=== PATIENT | female | born 1970 | race Caucasian/White ===

== ENCOUNTER 2023-02-16 09:08 | Emergency (ER) | payer BC, SELFPAY ==
[2023-02-16] VITALS (42 sets, daily range): BP systolic 129–181; BP diastolic 85–114; PULSE 74–99; RESP 12–25; TEMP 37.3; O2SAT 94–98
--- NOTE | ~2023-02-16 | CT_ITS ---
EXAMINATION: CT BRAIN W/O DATE: 02/16/2023 10:19 INDICATION: Hypertension. Dizziness. Headache. TECHNIQUE: Computed tomography (CT) of the head was performed without intravenous contrast. The dose- length product was 605.33 mGy-cm. Automated exposure control and iterative reconstruction technique w ere employed. COMPARISON: No prior studies for comparison. FINDINGS: Normal brain parenchymal volume for age. Normal dykes-white differentiation. No acute intrac ranial hemorrhage, infarction, mass or mass effect. No ventriculomegaly or midline shift. Midline sagittal images demonstrate a normal corpus callosum, c raniovertebral junction and sella turcica. Basilar cisterns are patent. Paranasal sinuses and mastoids are pneumatized. No depressed skull fractures. IMPRESSION: 1. No acute intracranial abnormality. Reviewed, dictated and finalized at location L.
--- NOTE | 2023-02-16 09:27 | ECG_ITS ---
Measurements Intervals [place] Rate: 82 P: 57 TX: 137 QRS: 30 QRSD: 92 T: 27 QT: 402 QTc: 471 Interpretive Statements SINUS RHYTHM NO PREVIOUS ECG AVAILABLE FOR COMPARISON Electronically Signed On 02-16-2023 17:07:07 CDT by Thierry Hawkins M.D.
--- NOTE | 2023-02-16 10:04 | ED.DIZZY ---
HPI - Dizziness General Chief Complaint: Dizziness <PAKO Jordan Last Filed: 02/16/23 15:10> Stated Complaint: high BP (184/112) <PAKO Jordan Last Filed: 02/16/23 15:10> Time Seen by Provider: 02/16/23 09:27 <PAKO Jordan Last Filed: 02/16/23 15:10> Source: patient <PAKO Jordan Last Filed: 02/16/23 15:10> Mode of arrival: ambulatory <PAKO Jordan Last Filed: 02/16/23 15:10> Limitations: no limitations <PAKO oJrdan Last Filed: 02/16/23 15:10> History of Present Illness HPI Narrative: Patient is a 52-year-old female who presents to the ED with report of hypertension. Patient reports having intermittent dizziness, occasionally described as though the room is spinning over the weekend. This morning while driving to work, patient developed a diffuse headache. She also began having the dizziness again at that time. She reported that she was seeing shadows while driving and just overall does not feel well. She went to work where they checked her blood pressure to be in the 180s systolic. She went to [place] urgent [facility] and her blood pressure was again elevated into the 180s. She was then referred here for further evaluation. Patient is not currently on any antihypertensives. She states that she saw her primary care doctor (who has since retired) 1 month ago and was told her blood pressure was elevated at that time. She was advised to monitor at home which she did for about 1 week before stopping. Her pressures were consistently elevated at home. Patient denies any focal weakness, numbness, chest pain, difficulty breathing, current vision changes, nausea, vomiting, recent fevers. <PAKO Jordan Last Filed: 02/16/23 15:10> Related Data Allergies/Adverse Reactions: Allergies Allergy/AdvReac Type Severity Reaction Status Date / Time Sulfa (Sulfonamide Allergy Unknown Itching Verified 02/16/23 11:04 Antibiotics) NFA Allergy Unknown Unknown Uncoded 02/16/23 11:04 <Nelida Motley PA-C - Last Filed: 02/16/23 15:10> Review of Systems Review of Systems: CONSTITUTIONAL: Denies fever, chills, or sweats. EYES: See HPI. CARDIOVASCULAR: Denies chest pain, palpitations, or edema. RESPIRATORY: Denies cough or dyspnea. GASTROINTESTINAL: Denies abdominal pain, nausea, vomiting, or diarrhea. MUSCULOSKELETAL: Denies back pain, joint pain, or myalgia. NEUROLOGIC: See HPI. <Nelida Motley PA-C - Last Filed: 02/16/23 15:10> All systems reviewed & are unremarkable except as noted in HPI and below <Nelida Motley PA-C - Last Filed: 02/16/23 15:10> Exam Narrative: GENERAL: Well appearing, well-nourished, non-toxic, in no acute distress. HEAD: Normocephalic, atraumatic. EYES: PERRLA/EOMI, conjunctiva clear. No nystagmus. ENT: Left cerumen impaction. Right canal partially obstructed by cerumen, TM partially visible without evidence for erythema/bulging/perforation. MMs moist. NECK: Supple. No adenopathy, no masses. No meningeal signs. RESPIRATORY: Airway patent, respirations nonlabored. Clear to auscultation bilaterally, no rales, rhonchi, wheezing. CARDIOVASCULAR: Regular rate and rhythm without murmurs, rubs, or gallops. Radial pulses 2+ and equal bilaterally. ABDOMINAL: Soft, nontender, nondistended, no hepatosplenomegaly. Normoactive BS. MUSCULOSKELETAL: Moves all extremities. Strength/ROM intact without gross deformities. SKIN: Warm, dry, normal color. No rashes. NEURO: A&O X3. Speech clear. Cranial nerves II-XII grossly intact. Steady gait. No ataxic movements. 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 No focal deficits. PSYCHIATRIC: Appropriate mood and affect. Normal interaction. <Nelida Motley PA-C - Last Filed: 02/16/23 15:10> Course CAD ENGINEER/PA Physician Supervision I agree with midlevel documentation; I performed the medical decision making component
--- NOTE | 2023-02-16 10:19 | PC.NURSE ---
Patient off unit to CT.
[2023-02-16 10:21] LABS: Basophils Percent Auto 0.4 % (0.2-1.2); Eosinophils Percent Auto 0.6 % (0-4.4); Hematocrit 36.7 % (37.0-47.0); Hemoglobin 12.7 g/dL (12.0-15.0); Immature Granulocyte Absolute 0.03 K/mm3 (0.00-0.031); Immature Granulocyte Percent A 0.6 % (0-0.5); Lymphocytes Absolute Auto 1.31 K/mm3 (0.9-3.2); Lymphocytes Percent Auto 27.5 % (18.3-44.2); Mean Corpuscular HGB Conc 34.6 g/dl (32-36); Mean Corpuscular Hemoglobin 32.2 pg (26-34); Mean Corpuscular Volume 92.9 fl (80-100); Mean Platelet Volume 11.1 fl (7.4-10.4); Monocytes Absolute Auto 0.4 K/mm3 (0.1-0.6); Monocytes Percent Auto 7.4 % (2.6-8.5); Neutrophils Percent Auto 63.5 % (45.5-73.1); Platelet Count Result 179 k/mm3 (150-375); Red Blood Count 3.95 M/mm3 (4.2-5.4); Red Cell Distribution Width 12.5 % (11.5-14.5); White Blood Count 4.8 K/mm3 (4.5-10.0)
[2023-02-16 10:31] LABS: Alanine Aminotransferase 72 U/L (6-35); Albumin Level 4.6 g/dL (3.5-5.1); Alkaline Phosphatase 55 U/L (38-126); Anion Gap 9 mmol/L (8-16); Aspartate Amino Transferase 57 U/L (14-36); Bilirubin,Total 0.5 mg/dL (0.2-1.3); Blood Urea Nitrogen 22 mg/dL (7-17); Calcium 8.9 mg/dL (8.4-10.2); Carbon Dioxide 27 mmol/L (22-30); Chloride 102 mmol/L (98-107); Estimated CRCL calculation 137 ml/min; Estimated Glomerular Filt Rate > 60; Glucose 74 mg/dL (65-110); Potassium 3.9 mmol/L (3.4-5.0); Sodium 138 mmol/L (137-145)
[2023-02-16] MEDS: ACETAMINOPHEN 500 MG TABLET 1000 MG PO (10:36)
[2023-02-16] MEDS: MECLIZINE HCL 25 MG TABLET PO (10:36)
[2023-02-16 10:41] LABS: Appearance Urine Clear (Clear); Bilirubin Urine Negative (Negative); Blood Urine Negative (Negative); Color Urine Yellow (Yellow); Glucose Urine UA Negative (Negative); Ketones Urine 1+ mg/dL (Negative); Leukocyte Esterase Ur Negative LEU/UL (Negative); Nitrate Urine Negative (Negative); Protein Urine Negative (Negative); Urobilinogen Urine 0.2 mg/dL (<2.0); pH Urine 5.5 (5.0-9.0)
[2023-02-16 10:43] LABS: Add Urine Microscopic? NO
[2023-02-16 10:43] LABS: Troponin I < 0.012 ng/mL (0.000-0.034)
[2023-02-16] MEDS: SODIUM CHLORIDE 0.9% IV 1,000 ML 999 ML IV CONT (11:03)
[2023-02-16] MEDS: CARBAMIDE PEROXIDE 6.5% OT SOLN 15 ML BTL 5 DROP EACH EAR (11:03)
[2023-02-16] MEDS: amLODIPine BESYLATE 5 MG TABLET PO (12:54)
[2023-02-16 13:40] LABS: Troponin I < 0.012 ng/mL (0.000-0.034)
== END 2023-02-16 14:36 | disposition home or self-care (01) ==
PROVIDERS: Emergency Provider Physician Assistant
DX: I10 Essential (primary) hypertension (principal); H61.23 Impacted cerumen, bilateral; R42 Dizziness and giddiness
CPT/HCPCS: 36415; 70450; 80053; 81003; 84484; 85025; 93005; 96360; 99284; A9270; J7030